=== PATIENT | male | born 1980 | race Caucasian/White ===

== ENCOUNTER 2025-02-18 09:36 | Emergency (ER) | payer SELFPAY ==
[~2025-02-18] VITALS: Ht 177.8 cm; Wt 95.2 kg
== END 2025-02-18 10:51 | disposition home or self-care (01) ==
LOC: ER 09:36
DX: F99 Mental disorder, not otherwise specified (principal); F17.200 Nicotine dependence, unspecified, uncomplicated
CPT/HCPCS: 99282